=== PATIENT | male | born 2000 | race African-American/Black ===

== ENCOUNTER 2019-08-04 23:37 | Emergency (ER) | payer BC, SELFPAY ==
[2019-08-04 23:40] VITALS: BP 164/79; PULSE 92; RESP 19; TEMP 36.4; O2SAT 100
--- NOTE | 2019-08-04 23:46 | ED.WOUNDLAC ---
HPI - Wound/Laceration General Chief Complaint: Wound/Laceration Stated Complaint: finger lac Time Seen by Provider: 08/04/19 23:46 Source: patient, family and RN notes reviewed Mode of arrival: other Limitations: no limitations History of Present Illness HPI narrative: Pt is a 19 y/o male who presents to the ED with c/o a laceration on his 3rd finger on his left hand. Pt states that the laceration occurred a couple of hours [employer] after trying to clean a knife on a paper towel. Pt arrived with bandage around his finger. Pt's father states the pt used Neosporin over the laceration. Pt denies lightheadedness, dizziness, numbness and tingling. Believes tetanus shot was 5 years ago. Onset (ago): hour(s) Location: other (finger) Place: home Patient tetanus UTD: No Context: accidental and sharp object use Associated symptoms: none Treatments prior to arrival: bandage and other (Neosporin) Related Data Home Medications Medication Instructions Recorded Confirmed No Home Medications 08/04/19 Allergies Allergy/AdvReac Type Severity Reaction Status Date / Time No Known Allergies Allergy Mild Verified 08/04/19 23:43 Review of Systems Review of Systems: All systems reviewed & are unremarkable except as noted in HPI and below Cardiovascular: Cardiovascular: Denies lightheadedness Integumentary/Breasts: Skin/Breast: Reports other (laceration on his 3rd finger on his left hand) Neurologic: Denies dizziness, Denies numbness and Denies tingling PMFSH Past Medical History Medical History (Updated 08/05/19 @ 01:19 by Dario Obrien MD) Labral tear of shoulder in left shoulder Surgical History Surgical History (Updated 08/04/19 @ 23:53 by Kacey Bermeo) History of orthopedic surgery to repair torn labrum in left shoulder Social History Social History (Updated 08/04/19 @ 23:52 by Kacey Bermeo) Smoking status: Never smoker Gender identity (if verbalized by the patient): Male Exam Const: General: healthy appearing and no acute distress Nutritional Appearance: well nourished HENMT: Mouth: Yes lip normal and Yes moist mucous membranes Eyes: Conjunctivae: conjunctivae normal Pupils: Equal, round and reactive pupils present Resp: Effort & Inspection: normal respiratory effort Skin: General skin exam: normal color, dry skin and other (warm) Neuro: General: patient oriented x3 and other (alert) Speech: normal speech Extrem: General: full ROM Left upper extremity: hand laceration (on 3rd finger of left hand) Psych: Mental Status: mental status grossly normal Affect: normal affect Course Vital Signs Vital signs: Vital Signs Temperature 36.4 C L 08/04/19 23:40 Pulse Rate 92 08/04/19 23:40 Respiratory Rate 19 08/04/19 23:40 Blood Pressure 164/79 H 08/04/19 23:40 Pulse Oximetry 100 08/04/19 23:40 Temperature 36.4 C L 08/04/19 23:40 Pulse Rate 92 08/04/19 23:40 Respiratory Rate 19 08/04/19 23:40 Blood Pressure 164/79 H 08/04/19 23:40 Pulse Oximetry 100 08/04/19 23:40 Procedures Laceration Laceration 1: Date: 08/05/19 Time: 01:25 Site: hand Side (If applicable): left Size (cm): 4 Description: flap Local Anesthetic: lidocaine 1% Amount of anesthesia used (mL): 10 Pre-repair: wound explored and irrigated ====== Skin Level ====== Skin layer closed with: nylon Size (cm): 5-0 Number of sutures: 12 Technique: simple, interrupted and horizontal mattress ====== Subcutaneous Layer ====== ====== Muscle Layer ====== ====== Tendon Layer ====== Dressing: gauze, tape, metal finger splint MDM - Wound/Laceration Differential Diagnosis Differential diagnosis: Likely laceration Medical Records Attestation: I reviewed the patient's medical records. Discharge Plan Discharge Clinical Impression: Finger laceration Qualifiers: Encounter type: ini
[2019-08-05] MEDS: TETANUS,DIPHTHERIA,AC PERTUSSIS ADULT 0.5 ML (ADACEL) IM (01:35)
[2019-08-05 01:47] VITALS: BP 135/75; PULSE 87; RESP 14; TEMP 36.6; O2SAT 99
== END 2019-08-05 01:48 | disposition home or self-care (01) ==
PROVIDERS: Emergency Provider Emergency Medicine
DX: S61.213A Laceration without foreign body of left middle finger without damage to nail, initial encounter (principal); Z23 Encounter for immunization; W26.0XXA Contact with knife, initial encounter; Y93.G1 Activity, food preparation and clean up
CPT/HCPCS: 12002; 90471; 90715; 99282

== ENCOUNTER 2020-12-01 14:07 | Emergency (ER) | payer BC, SELFPAY ==
[2020-12-01 14:13] VITALS: BP 136/97; PULSE 76; RESP 12; TEMP 36.5; O2SAT 99
--- NOTE | 2020-12-01 14:58 | ED.URI ---
HPI - URI/Sore Throat General Chief Complaint: Upper Respiratory Infection Stated Complaint: body aches/guerra/cough/sore throat/nasal congestion History of Present Illness HPI Narrative: This is a 20-year-old male who presented to urgent care with complaints of body aches, nausea, runny nose with yellowish drainage that occurred approximately 2 weeks ago. Patient notes that he assumed it was his allergies and took [id number] allergy medication. He notes that this week his symptoms have worsened. He does have nasal congestion and tenderness to his frontal sinuses. The patient denies SOB, CP, palpitation, extremity numbness, lightheadedness, dizziness, constipation, diarrhea, chills, or fever. MD elicited complaint: cough, rhinorrhea, nasal congestion and sinus pain Related Data Allergies Allergy/AdvReac Type Severity Reaction Status Date / Time No Known Allergies Allergy Mild Verified 12/01/20 14:12 Review of Systems Review of Systems: Narrative: A 14 organ system Review of Systems was performed and pertinent positives included in the HPI, otherwise remaining ROS is negative. All systems reviewed & are unremarkable except as noted in HPI and below [facility] Past Medical History Medical History (Updated 12/01/20 @ 14:57 by LANDON Interiano) Labral tear of shoulder in left shoulder Surgical History Surgical History (Updated 08/04/19 @ 23:53 by Kacey Bermeo) History of orthopedic surgery to repair torn labrum in left shoulder Social History Social History (Updated 08/04/19 @ 23:52 by Kacey Bermeo) Smoking status: Never smoker Gender identity (if verbalized by the patient): Male Exam Narrative: Exam Narrative: GENERAL: This is a well-nourished, well-developed patient, in no apparent distress. HEAD: normocephalic, atraumatic. EYES: PERRL. Sclera clear/white. Vision is grossly intact. EARS: External ears normal, auditory canals clear and without drainage, TMs normal without perforation. Hearing grossly intact. NOSE: External nose normal with no obvious nasal discharge, nares without redness, no rhinorrhea. THROAT: Mucous membranes moist, posterior pharynx clear. NECK: Neck supple, until frontal sinus tenderness without lymphadenopathy, masses or thyromegaly. CARDIOVASCULAR: Regular rate and rhythm without murmurs, gallops, or rubs. RESPIRATORY: Clear to auscultation. Breath sounds equal bilaterally. No wheezes, rales, or rhonchi. GASTROINTESTINAL: Abdomen soft, non-tender, nondistended. Bowel sounds are active. No hepato-splenomegaly, or palpable masses. No guarding. SKIN: warm, intact with no suspicious lesions or rash, good texture and turgor. NEURO: awake, alert, and oriented to person, place and time. There were no obvious focal neurologic abnormalities. Steady gait EXTREMITIES: Normal range of motion. No edema. No calf tenderness. Negative Homans sign bilaterally. BACK: Nontender without deformity or crepitance. No flank tenderness. Course Course Emergency Course: Patient will discharge with Augmentin x7 days Vital Signs Vital signs: Vital Signs Temperature 97.7 F 12/01/20 14:13 Pulse Rate 76 12/01/20 14:13 Respiratory Rate 12 12/01/20 14:13 Blood Pressure 136/97 H 12/01/20 14:13 Pulse Oximetry 99 12/01/20 14:13 Temperature 97.7 F 12/01/20 14:13 Pulse Rate 76 12/01/20 14:13 Respiratory Rate 12 12/01/20 14:13 Blood Pressure 136/97 H 12/01/20 14:13 Pulse Oximetry 99 12/01/20 14:13 MDM - URI/Sore Throat Differential Diagnosis Differential diagnosis: Likely upper respiratory infection, sinusitis, bronchitis, pharyngitis and other Lab Data Attestation: I reviewed the patient's lab results. Lab results narrative: Covid negative Discharge Plan Discharge Clinical Impression: Sinusitis Qualifiers: Sinusitis location: frontal Chronicity: acute Recurrence: non-recurrent Qualified Code(s): J01.10 - Acute frontal sinusitis, unspecified Patient Disposit
== END 2020-12-01 14:59 | disposition home or self-care (01) ==
PROVIDERS: Emergency Provider Nurse Practitioner
DX: J01.10 Acute frontal sinusitis, unspecified (principal); Z20.822 Contact with and (suspected) exposure to COVID-19
CPT/HCPCS: 87426; 99213; C9803; G0463

== ENCOUNTER → 2022-03-22 13:49 | Outpatient (CLI) | payer BC, SELFPAY ==
--- NOTE | ~2022-03-22 | CT_ITS ---
EXAMINATION: CT abdomen pelvis wo con DATE: 03/22/2022 14:09 INDICATION: Left lower quadrant abdominal tenderness. Hematochezia. Bowel movements. TECHNIQUE: Computed tomography (CT) of the abdomen and pelvis was performed without intravenous contr ast. Automated exposure control and iterative reconstruction technique were employed. Exam dose: 264 .81 mGy-cm total exam DLP. COMPARISON: None. FINDINGS: The lung bases are clear. Normal heart size. No pericardial or pleural effusion. The liver, gallbladder, bile ducts, spleen, pancreas, pancreatic duct, and adrenal glands and kidneys are unremarkable. No urinary tract calculus or hydroureteronephrosis. The urinary bladder is relativ annette evacuated and unremarkable. Normal appendix. Minimal diverticulosis of the colon; no CT evidence of diverticulitis. No bowel obstruction, bowel wa ll thickening, pneumatosis or intraperitoneal free air is detected. Normal caliber of the abdominal aorta. No intraperitoneal or retroperitoneal or pelvic mass lesion or adenopathy or ascites. Bilateral L5 pars interarticularis defects without any associated spondylolisthesis. Included skeleta l structures are otherwise unremarkable. IMPRESSION: Minimal colonic diverticulosis; no CT evidence of diverticulitis Normal appendix Bilateral L5 pars interarticularis defects Reviewed, dictated and finalized at [facility]. Reviewed, dictated and finalized at [facility]. R WORKER
== END ==
PROVIDERS: PCP Family Medicine; Visit Provider Family Medicine
DX: K92.1 Melena (principal)
CPT/HCPCS: 74176

== ENCOUNTER → 2023-02-01 13:58 | Outpatient (CLI) | payer BC, SELFPAY ==
--- NOTE | ~2023-02-01 | US_ITS ---
EXAMINATION: US scrotum doppler DATE: 02/01/2023 14:18 INDICATION: Bilateral testicular pain TECHNIQUE: Testicular sonogram utilizing grayscale and Doppler COMPARISON: None. FINDINGS: The right testis measures 3.8 x 2.3 x 2.9 cm. The left testis measures 3.4 x 2.1 x 2.4 cm. There is normal vascular flow to both testes. The right epididymis is normal with normal vascular samm w. The left epididymis is normal with normal vascular flow. There is a small right hydrocele. IMPRESSION: 1. Small right hydrocele, otherwise unremarkable examination. Reviewed, dictated and finalized at [facility].
== END ==
PROVIDERS: PCP Family Medicine; Visit Provider Nurse Practitioner Family
DX: N43.3 Hydrocele, unspecified (principal)
CPT/HCPCS: 76870; 93976